=== PATIENT | female | born 1990 | race Caucasian/White ===

== ENCOUNTER 2020-12-21 11:33 | Inpatient (IN) | payer BC ==
[2020-12-21] MEDS ORDERED: Misoprostol 200 MCG Tab PO PRN (11:48)
[2020-12-21] MEDS ORDERED: Sodium Chloride 0.9% 10 ML SDV IV PRN (11:48)
[2020-12-21] MEDS ORDERED: Methylergonovine 0.2 MG/1 ML Amp IM PRN (11:48)
[2020-12-21] MEDS ORDERED: Carboprost Tromethamine 250 MCG/1 ML Amp IM PRN (11:48)
[2020-12-21] MEDS ORDERED: Lidocaine 1% 50 ML MDV INJECT PRN (11:48)
[2020-12-21] MEDS ORDERED: Nalbuphine 10 MG/1 ML Vial IVPUSH PRN (11:48)
[2020-12-21] MEDS ORDERED: Sodium Chloride 0.9% 2.5 ML Syringe FLUSH PRN (11:48)
[2020-12-21] MEDS ORDERED: Tranexamic Acid 1,000 MG in Sodium Chloride 0.9% 100 ML IV PRN (11:48)
[2020-12-21] MEDS ORDERED: Butorphanol 1 MG/ML SDV IVPUSH PRN (11:48)
[2020-12-21] MEDS ORDERED: Water For Irrigation,Sterile 1,000 ML Container IRR PRN (11:48)
[2020-12-21] MEDS ORDERED: Sodium Chloride 0.9% 10 ML Syringe FLUSH PRN (11:48)
[2020-12-21] MEDS ORDERED: Misoprostol 25 MCG (1/4 of 100 MCG) Tab VAG PRN ×2 (11:52)
[2020-12-21] MEDS ORDERED: Terbutaline 1 MG/ML SDV SUBCUT PRN (11:52)
[2020-12-21] MEDS ORDERED: Oxytocin/0.9 % Sodium Chloride 30 UNIT/500 ML BAG IV SCH ×2 (12:00)
[2020-12-21] MEDS ORDERED: Lactated Ringers 1,000 ML IV SCH (12:00)
[2020-12-21] MEDS ORDERED: Oxytocin/0.9 % Sodium Chloride 30 UNIT/500 ML BAG ONE (12:55)
[2020-12-21] MEDS ORDERED: fentaNYL 100 MCG/2 ML SDV ONE ×2 (14:24→14:25)
[2020-12-21] MEDS ORDERED: Ropivacaine HCl/PF 200 ML ONE (14:24)
--- NOTE | 2020-12-21 15:02 | PCM.PREANE ---
Preanesthetic Assessment - Anesthesia/Transfusion/Family Hx Anesthesia History: No Prior Anesthesia Family History of Anesthesia Reaction: No Transfusion History: No Prior Transfusion(s) Intubation History: Unknown - Review of Systems General: No Symptoms Pulmonary: No Symptoms Cardiovascular: No Symptoms Gastrointestinal: No Symptoms Neurological: No Symptoms Other: Reports: None - Physical Assessment NPO Status Date: 12/21/20 NPO Status Time: 13:00 Height: 6 ft 1 in Weight: 89.358 kg ASA Class: 2 Mental Status: Alert & Oriented x3 Dentition: Reports: Normal Dentition ROM/Head Extension: Full Lungs: Clear to Auscultation, Normal Respiratory Effort Cardiovascular: Regular Rate, Regular Rhythm - Lab Values: Laboratory Last Values WBC 7.94 K/uL (4.0-11.0) 12/21/20 11:48 RBC 3.39 M/uL (4.30-5.90) L 12/21/20 11:48 Hgb 10.1 g/dL (12.0-16.0) L 12/21/20 11:48 Hct 31.0 % (36.0-46.0) L 12/21/20 11:48 MCV 91.4 fL (80.0-98.0) 12/21/20 11:48 MCH 29.8 pg (27.0-32.0) 12/21/20 11:48 MCHC 32.6 g/dL (31.0-37.0) 12/21/20 11:48 RDW Std Deviation 44.6 fl (28.0-62.0) 12/21/20 11:48 RDW Coeff of Vani 14 % (11.0-15.0) 12/21/20 11:48 Plt Count 237 K/uL (150-400) 12/21/20 11:48 MPV 12.40 fL (7.40-12.00) H 12/21/20 11:48 Nucleated RBC % 0.0 /100WBC 12/21/20 11:48 Nucleated RBCs # 0 K/uL 12/21/20 11:48 SARS-CoV-2 RNA (ROGER) NEGATIVE (NEGATIVE) 12/21/20 12:00 Blood Type A POSITIVE 12/21/20 11:55 Antibody Screen NEGATIVE 12/21/20 11:55 - Allergies Allergies/Adverse Reactions: Allergies Allergy/AdvReac Type Severity Reaction Status Date / Time pollen extracts Allergy Rash Verified 12/21/20 11:48 - Blood Blood Available: No Product(s) Available: None - Anesthesia Plan Pre-Op Medication Ordered: None - Acknowledgements Anesthesia Type Planned: Epidural Pt an Appropriate Candidate for the Planned Anesthesia: Yes Alternatives and Risks of Anesthesia Discussed w Pt/Guardian: Yes Pt/Guardian Understands and Agrees with Anesthesia Plan: Yes PreAnesthesia Questionnaire HEENT History: Reports: Sinusitis Gastrointestinal History: Reports: GERD Hematologic History: Reports: Anemia - Past Surgical History HEENT Surgical History: Reports: Oral Surgery (wisdom teeth and another tooth that wasn't coming in correctly) Musculoskeletal Surgical History: Reports: Other (See Below) (left foot bunion) - HOME MEDS Home Medications: Home Meds No122/Iron/Folic Acid [ Multi Tablet] 1 each PO 07/19/18 [History] - CURRENT (IN HOUSE) MEDS Current Meds: Current Medications Butorphanol Tartrate (Butorphanol 1 Mg/Ml Sdv) 1 mg IVPUSH Q1H PRN PRN Reason: Pain (severe 7-10) Carboprost Tromethamine (Carboprost Tromethamine 250 Mcg/1 Ml Amp) 250 mcg IM ASDIRECTED PRN PRN Reason: Post Hemorrhage Oxytocin/Sodium Chloride (Oxytocin 30 Unit/500 Ml-Ns) 30 unit in 500 mls @ 500 mls/hr IV TITRATE ELVIN Tranexamic Acid 1,000 mg/ (Sodium Chloride) 110 mls @ 660 mls/hr IV ONETIME PRN PRN Reason: Bleeding Lactated Ringer's (Ringers, Lactated) 1,000 mls @ 150 mls/hr IV ASDIRECTED ELVIN Last Infusion: 12/21/20 14:08 Dose: 999 mls/hr Documented by: Oxytocin/Sodium Chloride (Oxytocin 30 Unit/500 Ml-Ns) 30 unit in 500 mls @ 2 mls/hr IV TITRATE ELVIN; Protocol Last Titration: 12/21/20 14:45 Dose: 8 munits/min, 8 mls/hr Documented by: Lidocaine HCl (Lidocaine 1% 50 Ml Mdv) 50 ml INJECT ONETIME PRN PRN Reason: Laceration repair Methylergonovine Maleate (Methylergonovine 0.2 Mg/1 Ml Amp) 0.2 mg IM ASDIRECTED PRN PRN Reason: Post Hemorrhage Misoprostol (Misoprostol 200 Mcg Tab) 200 mcg PO ONETIME PRN PRN Reason: Post Hemorrhage Misoprostol (Misoprostol 25 Mcg (1/4 Of 100 Mcg) Tab) 25 mcg VAG ONETIME PRN PRN Reason: Cervical Ripening Misoprostol (Misoprostol 25 Mcg (1/4 Of 100 Mcg) Tab) 25 mcg VAG Q4H PRN PRN Reason: Cervical Ripening Nalbuphine HCl (Nalbuphine 10 Mg/1 Ml Vial) 10 mg IVPUSH Q1H PRN PRN Reason: Pain (severe 7-10) Sodium Chloride (Sodium Chloride 0.9% 10 Ml Syringe) 10 ml FLUSH ASDIRECTED PRN PRN Reason: Keep Vein Open Sodium Chloride (Sodium Chloride 0.9% 2.5 Ml Syringe) 2.5 ml FLUSH ASDIRECTED PRN PRN Reason: Keep Vein Open Sodium Chloride (Sodium Chloride 0.9% 10 Ml Sdv) 10 ml IV ASDIRECTED PRN PRN Reason: IV Use Sterile Water (Water For Irrigation,Sterile 1,000 Ml Container) 1,000 ml IRR ASDIRECTED PRN PRN Reason: delivery Terbutaline Sulfate (Terbutaline 1 Mg/Ml Sdv) 0.25 mg SUBCUT ASDIRECTED PRN PRN Reason: Tacysystole Discontinued Medications Fentanyl (Fentanyl 100 Mcg/2 Ml Sdv) Confirm Administered Dose 100 mcg .ROUTE .STK-MED ONE Stop: 12/21/20 14:25 Fentanyl (Fentanyl 100 Mcg/2 Ml Sdv) Confirm Administered Dose 100 mcg .ROUTE .STK-MED ONE Stop: 12/21/20 14:26 Oxytocin/Sodium Chloride (Oxytocin 30 Unit/500 Ml-Ns) Confirm Administered Dose 30 unit in 500 mls @ as directed .ROUTE .STK-MED ONE Stop: 12/21/20 12:56 Ropivacaine (Naropin 0.2%) Confirm Administered Dose 200 mls @ as directed .ROUTE .STK-MED ONE Stop: 12/21/20 14:25
--- NOTE | 2020-12-21 18:53 | PCM.OPNOTE ---
- General Post-Op/Procedure Note Date of Surgery/Procedure: 12/21/20 Operative Procedure(s): /IP Findings: Viable male AGPARs 8, 9 weight 3970 gm. Spontaneous delivery intact placenta with 3V cord Pre Op Diagnosis: 39 week IUP. Elective IOL Post-Op Diagnosis: Same Anesthesia Technique: Epidural Primary Surgeon: Charleen Hurd EBL in mLs: 250 Complications: none known Condition: Stable Free Text/Narrative:: Dictation [id number]
[2020-12-21] MEDS ORDERED: Witch Hazel Medicated Pads 40/Jar TOP PRN (18:54)
[2020-12-21] MEDS ORDERED: Benzocaine/Menthol 20%-0.5% Spray 78 GM Cannister TOP PRN (18:54)
[2020-12-21] MEDS ORDERED: Lanolin 100% Cream 7 GM Tube TOP PRN (18:54)
[2020-12-21] MEDS ORDERED: Bisacodyl 10 MG Supp RECTAL PRN (18:54)
[2020-12-21] MEDS ORDERED: oxyCODONE 5 MG Tab PO PRN (18:54)
[2020-12-21] MEDS ORDERED: Ibuprofen 400 MG Tab PO PRN (18:54)
[2020-12-21] MEDS ORDERED: Acetaminophen 500 MG Tab PO PRN ×2 (18:54)
--- NOTE | 2020-12-21 20:49 | OR ---
SURGEON: Charleen Hurd M.D. DATE OF PROCEDURE: 12/21/2020 PREOPERATIVE DIAGNOSES: 1. A 39-week intrauterine . 2. Elective induction of labor. POSTOPERATIVE DIAGNOSES: 1. A 39-week intrauterine . 2. Elective induction of labor. PROCEDURE: Spontaneous vaginal delivery, intact perineum. PRIMARY SURGEON: Charleen Hurd M.D. ANESTHESIA: Epidural. ESTIMATED BLOOD LOSS: 200 mL. COMPLICATIONS: None known. FINDINGS: Viable male. scores of 8 at one minute, 9 at five minutes. Weight of 3970 g. Spontaneous delivery, intact placenta, 3-vessel cord. DISPOSITION: Infant to nursery, mom in LDRP. PROCEDURE DETAILS: Teri is a 30-year-old G4, P2-0-1-2 at 39 weeks gestational age, presents today for scheduled elective induction of labor. Upon admission, the patient was found to be 2 cm, 60% effaced, and -2 station with category 1 heart tones. She is group B beta strep negative. The patient was admitted. Routine labs drawn. IV hydration was initiated. She was initiated on Pitocin induction and responded nicely to this. Amniotomy was performed. A large amount of clear fluid was returned. The patient continued to progress through the early afternoon hours, became increasingly uncomfortable, underwent regional anesthesia in the form of epidural, became more comfortable, and continued to progress nicely thereafter. The patient was found to be complete. She was placed in modified dorsal lithotomy position, prepped and draped in the usual aseptic manner. With the next 2 contractions, she was able to gently push and deliver 's head atraumatically spontaneously, followed by anterior shoulder and posterior shoulder, and remainder of the body without difficulty. Nuchal cord x1 was reduced manually. The 's oropharynx and nares were bulb suctioned. Infant was handed off to his mother, attending nursery staff at the side. After a delay, cord was clamped x2 and cut. Cord arterial, cord venous, and cord blood samples were obtained. Light pressure was applied while the placenta was delivered spontaneously intact. Vigorous fundal uterine massage was then applied with 30 units of Pitocin delivered in 500 mL of IV fluid. Upon inspection of cervix, vaginal sidewall, and perineum, these were found intact. Uterus remained firm. Hemostasis evident. Sponge and instrument counts were correct. The patient remained in LDRP, to nursery. CHETAN / SOULEYMANE /[id number]
[2020-12-21] MEDS: Docusate Sodium 100 MG Cap PO PRN (22:28)
[2020-12-21] MEDS: Ibuprofen 800 MG Tab PO PRN (22:28)
--- NOTE | 2020-12-22 07:18 | PCM.POSTAN ---
POST ANESTHESIA ASSESSMENT - MENTAL STATUS Mental Status: Alert - VITAL SIGNS Vital Signs: Last Vital Signs Temp 36.4 C 12/22/20 06:00 Pulse 71 12/22/20 06:00 Resp 16 12/22/20 06:00 BP 103/60 12/22/20 06:00 Pulse Ox 96 12/22/20 06:00 - RESPIRATORY Respiratory Status: Respiratory Rate WNL - CARDIOVASCULAR CV Status: Pulse Rate WNL - GASTROINTESTINAL GI Status: No Symptoms - POST OP HYDRATION Hydration Status: Adequate & Stable
--- NOTE | 2020-12-22 07:19 | PCM48HPAN ---
Post Anesthesia Note - EVALUATION WITHIN 48HRS OF ANESTHETIC Vital Signs in Normal Range: Yes Patient Participated in Evaluation: Yes Respiratory Function Stable: Yes Airway Patent: Yes Cardiovascular Function Stable: Yes Hydration Status Stable: Yes Pain Control Satisfactory: Yes Nausea and Vomiting Control Satisfactory: Yes Mental Status Recovered: Yes Vital Signs: Last Vital Signs Temp 36.4 C 12/22/20 06:00 Pulse 71 12/22/20 06:00 Resp 16 12/22/20 06:00 BP 103/60 12/22/20 06:00 Pulse Ox 96 12/22/20 06:00
[2020-12-22] MEDS: Ibuprofen 800 MG Tab PO PRN ×2 (07:54→22:04)
[2020-12-22] MEDS: Docusate Sodium 100 MG Cap PO PRN (07:55)
--- NOTE | 2020-12-22 10:00 | PCM.PNPP ---
- General Info Date of Service: 12/22/20 Functional Status: Reports: Pain Controlled, Tolerating Diet, Ambulating, Urinating - Review of Systems General: Reports: Fatigue. Denies: Fever, Weakness Pulmonary: Denies: Shortness of Breath Cardiovascular: Reports: Edema. Denies: Chest Pain, Palpitations, Lightheadedness Gastrointestinal: Denies: Abdominal Pain, Nausea, Vomiting Genitourinary: Denies: Flank Pain Musculoskeletal: Reports: No Symptoms Skin: Reports: No Symptoms Neurological: Reports: No Symptoms Psychiatric: Reports: No Symptoms - General Info Date of Service: 12/22/20 - Patient Data Vital Signs - Most Recent: Last Vital Signs Temp 36.8 C 12/22/20 08:20 Pulse 80 12/22/20 08:20 Resp 18 12/22/20 08:20 BP 114/76 12/22/20 08:20 Pulse Ox 97 12/22/20 08:20 Weight - Most Recent: 88.451 kg Lab Results - Last 24 Hours: Laboratory Results - last 24 hr 12/21/20 12/21/20 12/21/20 Range/Units 11:48 11:55 12:00 WBC 7.94 (4.0-11.0) K/uL RBC 3.39 L (4.30-5.90) M/uL Hgb 10.1 L (12.0-16.0) g/dL Hct 31.0 L (36.0-46.0) % MCV 91.4 (80.0-98.0) fL MCH 29.8 (27.0-32.0) pg MCHC 32.6 (31.0-37.0) g/dL RDW Std Deviation 44.6 (28.0-62.0) fl RDW Coeff of Vani 14 (11.0-15.0) % Plt Count 237 (150-400) K/uL MPV 12.40 H (7.40-12.00) fL Nucleated RBC % 0.0 /100WBC Nucleated RBCs # 0 K/uL Cord ABG pH (7.18-7.38) Cord ABG Base Excess (-10--2) Cord VBG pH (7.25-7.45) Cord VBG Base Excess (-10--2) SARS-CoV-2 RNA (ROGER) NEGATIVE (NEGATIVE) Blood Type A POSITIVE Antibody Screen NEGATIVE 12/21/20 12/22/20 Range/Units 18:58 05:42 WBC (4.0-11.0) K/uL RBC (4.30-5.90) M/uL Hgb 9.5 L (12.0-16.0) g/dL Hct 29.0 L (36.0-46.0) % MCV (80.0-98.0) fL MCH (27.0-32.0) pg MCHC (31.0-37.0) g/dL RDW Std Deviation (28.0-62.0) fl RDW Coeff of Vani (11.0-15.0) % Plt Count (150-400) K/uL MPV (7.40-12.00) fL Nucleated RBC % /100WBC Nucleated RBCs # K/uL Cord ABG pH 7.206 (7.18-7.38) Cord ABG Base Excess -5 (-10--2) Cord VBG pH 7.374 (7.25-7.45) Cord VBG Base Excess -2 (-10--2) SARS-CoV-2 RNA (ROGER) (NEGATIVE) Blood Type Antibody Screen Med Orders - Current: Current Medications Acetaminophen (Acetaminophen 500 Mg Tab) 500 mg PO Q4H PRN PRN Reason: Pain (mild 1-3) Acetaminophen (Acetaminophen 500 Mg Tab) 1,000 mg PO Q4H PRN PRN Reason: Pain (mild 1-3) Benzocaine/Menthol (Benzocaine/Menthol 20%-0.5% [place] 78 Gm Cannister) 0 gm TOP ASDIRECTED PRN PRN Reason: Perineal Comfort Measure Last Admin: 12/21/20 22:29 Dose: 1 spray Documented by: Bisacodyl (Bisacodyl 10 Mg Supp) 10 mg RECTAL ONETIME PRN PRN Reason: Constipation Carboprost Tromethamine (Carboprost Tromethamine 250 Mcg/1 Ml Amp) 250 mcg IM ASDIRECTED PRN PRN Reason: Post Hemorrhage Docusate Sodium (Docusate Sodium 100 Mg Cap) 100 mg PO Q12H PRN PRN Reason: Constipation Last Admin: 12/22/20 07:55 Dose: 100 mg Documented by: Emollient Ointment (Lanolin 100% Cream 7 Gm Tube) 0 gm TOP ASDIRECTED PRN PRN Reason: Sore Nipples Oxytocin/Sodium Chloride (Oxytocin 30 Unit/500 Ml-Ns) 30 unit in 500 mls @ 500 mls/hr IV TITRATE ELVIN Tranexamic Acid 1,000 mg/ (Sodium Chloride) 110 mls @ 660 mls/hr IV ONETIME PRN PRN Reason: Bleeding Lactated Ringer's (Ringers, Lactated) 1,000 mls @ 150 mls/hr IV ASDIRECTED ELVIN Last Infusion: 12/21/20 14:08 Dose: 999 mls/hr Documented by: Oxytocin/Sodium Chloride (Oxytocin 30 Unit/500 Ml-Ns) 30 unit in 500 mls @ 2 mls/hr IV TITRATE ELVIN; Protocol Last Titration: 12/21/20 17:10 Dose: 18 munits/min, 18 mls/hr Documented by: Ibuprofen (Ibuprofen 400 Mg Tab) 400 mg PO Q4H PRN PRN Reason: Pain (mild 1-3) Ibuprofen (Ibuprofen 800 Mg Tab) 800 mg PO Q6H PRN PRN Reason: Pain (mild 1-3) Last Admin: 12/22/20 07:54 Dose: 800 mg Documented by: Nalbuphine HCl (Nalbuphine 10 Mg/1 Ml Vial) 10 mg IVPUSH Q1H PRN PRN Reason: Pain (severe 7-10) Oxycodone HCl (Oxycodone 5 Mg Tab) 5 mg PO Q2H PRN PRN Reason: Pain (severe 7-10) Sodium Chloride (Sodium Chloride 0.9% 10 Ml Syringe) 10 ml FLUSH ASDIRECTED PRN PRN Reason: Keep Vein Open Sodium Chloride (Sodium Chloride 0.9% 2.5 Ml Syringe) 2.5 ml FLUSH ASDIRECTED PRN PRN Reason: Keep Vein Open Sodium Chloride (Sodium Chloride 0.9% 10 Ml Sdv) 10 ml IV ASDIRECTED PRN PRN Reason: IV Use Sterile Water (Water For Irrigation,Sterile 1,000 Ml Container) 1,000 ml IRR ASDIRECTED PRN PRN Reason: delivery Terbutaline Sulfate (Terbutaline 1 Mg/Ml Sdv) 0.25 mg SUBCUT ASDIRECTED PRN PRN Reason: Tacysystole Witch Trisha (Witch Trisha Medicated Pads 40/Jar) 1 pad TOP ASDIRECTED PRN PRN Reason: comfort care Last Admin: 12/21/20 22:30 Dose: 1 pad Documented by: Discontinued Medications Butorphanol Tartrate (Butorphanol 1 Mg/Ml Sdv) 1 mg IVPUSH Q1H PRN PRN Reason: Pain (severe 7-10) Fentanyl (Fentanyl 100 Mcg/2 Ml Sdv) Confirm Administered Dose 100 mcg .ROUTE .STK-MED ONE Stop: 12/21/20 14:25 Last Admin: 12/22/20 07:30 Dose: Not Given Documented by: Fentanyl (Fentanyl 100 Mcg/2 Ml Sdv) Confirm Administered Dose 100 mcg .ROUTE .STK-MED ONE Stop: 12/21/20 14:26 Last Admin: 12/22/20 07:30 Dose: Not Given Documented by: Oxytocin/Sodium Chloride (Oxytocin 30 Unit/500 Ml-Ns) Confirm Administered Dose 30 unit in 500 mls @ as directed .ROUTE .STK-MED ONE Stop: 12/21/20 12:56 Last Admin: 12/22/20 07:30 Dose: Not Given Documented by: Ropivacaine (Naropin 0.2%) Confirm Administered Dose 200 mls @ as directed .ROUTE .STK-MED ONE Stop: 12/21/20 14:25 Last Admin: 12/22/20 07:30 Dose: Not Given Documented by: Lidocaine HCl (Lidocaine 1% 50 Ml Mdv) 50 ml INJECT ONETIME PRN PRN Reason: Laceration repair Methylergonovine Maleate (Methylergonovine 0.2 Mg/1 Ml Amp) 0.2 mg IM ASDIRECTED PRN PRN Reason: Post Hemorrhage Misoprostol (Misoprostol 200 Mcg Tab) 200 mcg PO ONETIME PRN PRN Reason: Post Hemorrhage Misoprostol (Misoprostol 25 Mcg (1/4 Of 100 Mcg) Tab) 25 mcg VAG ONETIME PRN PRN Reason: Cervical Ripening Misoprostol (Misoprostol 25 Mcg (1/4 Of 100 Mcg) Tab) 25 mcg VAG Q4H PRN PRN Reason: Cervical Ripening - Infant Interaction Support Person: - Recovery Exam Fundal Tone: Firm Fundal Level: 1 Fingerbreadths Below Umbilicus Fundal Placement: Midline Lochia Amount: Scant Lochia Color: Rubra/Red Perineum Description: Intact, Minimal Bruising/Swelling Episiotomy/Laceration: None Bladder Status: Voiding Urinary Elimination: Voided - Exam General: Alert, Oriented Lungs: Normal Respiratory Effort Cardiovascular: Regular Rate, Regular Rhythm GI/Abdominal Exam: Normal Bowel Sounds, Soft Extremities: Pedal Edema (trace). No: Patrica's Sign Skin: Warm, Dry, Intact Neurological: No New Focal Deficit Psy/Mental Status: Alert, Normal Affect, Normal Mood - Problem List & Annotations (1) Vaginal delivery SNOMED Code(s): 063847823 Code(s): O80 - ENCOUNTER FOR FULL-TERM UNCOMPLICATED DELIVERY Status: Acute Current Visit: No - Problem List Review Problem List Initiated/Reviewed/Updated: Yes - My Orders Last 24 Hours: My Active Orders 12/21/20 11:20 Patient Status [ADT] Routine 12/21/20 11:48 Vital Signs [RC] PER UNIT ROUTINE Carboprost Tromethamine [Hemabate DS] 250 mcg IM ASDIRECTED PRN Nalbuphine [Nubain] 10 mg IVPUSH Q1H PRN Sodium Chloride 0.9% [Normal Saline] 10 ml IV ASDIRECTED PRN Sodium Chloride 0.9% [Saline Flush] 10 ml FLUSH ASDIRECTED PRN Sodium Chloride 0.9% [Saline Flush] 2.5 ml FLUSH ASDIRECTED PRN Tranexamic Acid [Cyklokapron] 1,000 mg Sodium Chloride 0.9% [Normal Saline] 100 ml IV ONETIME Water For Irrigation,Sterile [Sterile Water for Irrigation] 1,000 ml IRR ASDIRECTED PRN Peripheral IV Insertion Adult [OM.PC] Routine Resuscitation Status Routine 12/21/20 11:52 Terbutaline [Brethine] 0.25 mg SUBCUT ASDIRECTED PRN 12/21/20 11:55 RPR (SYPHILIS SERO) W/ RFLX [REF] Routine 12/21/20 12:00 Lactated Ringers [Ringers, Lactated] 1,000 ml IV ASDIRECTED Oxytocin/0.9 % Sodium Chloride [Oxytocin 30 Unit/500 ML-NS] 30 unit in 500 ml IV TITRATE Oxytocin/0.9 % Sodium Chloride [Oxytocin 30 Unit/500 ML-NS] 30 unit in 500 ml IV TITRATE Medication Administration Instruction [OM.PC] Q3H 12/21/20 Dinner Regular Diet [DIET] 12/21/20 18:54 Notify Provider Vital Signs [RC] ASDIRECTED Acetaminophen [Tylenol Extra Strength] 1,000 mg PO Q4H PRN Acetaminophen [Tylenol Extra Strength] 500 mg PO Q4H PRN Benzocaine/Menthol [Dermoplast Pain Relief 20%-0.5% [place]] 0 gm TOP ASDIRECTED PRN Docusate Sodium [Colace] 100 mg PO Q12H PRN Ibuprofen [Motrin] 400 mg PO Q4H PRN Ibuprofen [Motrin] 800 mg PO Q6H PRN Lanolin [Lansinoh HPA] See Dose Instructions TOP ASDIRECTED PRN bisacodyL [Dulcolax] 10 mg RECTAL ONETIME PRN oxyCODONE 5 mg PO Q2H PRN witch Trisha [Tucks] 1 pad TOP ASDIRECTED PRN 12/21/20 18:55 Patient Status [ADT] Routine May Shower [RC] ASDIRECTED Up ad Tsering [RC] ASDIRECTED Vital Signs [RC] PER UNIT ROUTINE Assess Lochia [WOMSER] Per Unit Routine Assess Uterine Involution [WOMSER] Per Unit Routine Peripheral IV Discontinue [OM.PC] Routine 12/21/20 18:57 Cooling Warming Measures [RC] ASDIRECTED Ice Therapy [OM.PC] Per Unit Routine Perineal Care [OM.PC] Per Unit Routine Sitz Bath [OM.PC] Per Unit Routine 12/22/20 09:58 Ready for Discharge [RC] PER UNIT ROUTINE - Assessment Assessment:: PPD 1 status post - Plan Plan:: Doing well overall, VS are stable. Discussed anemia and advised iron tablet daily along with vitamin. Patient would like to go home later. Discharge instructions reviewed. Follow up at [facility] 4 weeks.
[2020-12-22 19:59] VITALS: BP 112/73; PULSE 76
== END 2020-12-22 23:00 | disposition home or self-care (01) | DRG 560 ==
LOC: MW.OB 11:33 → OBSVTOIN 18:26 → MW.OB 21:15
PROVIDERS: ADMIT Obstetrics & Gynecology; ATTEND Obstetrics & Gynecology
PROC: 10E0XZZ Delivery of Products of Conception, External Approach (ICD-10-PCS; principal; 2020-12-21)
PROC: 3E033VJ Introduction of Other Hormone into Peripheral Vein, Percutaneous Approach (ICD-10-PCS; 2020-12-21)
PROC: 10907ZC Drainage of Amniotic Fluid, Therapeutic from Products of Conception, Via Natural or Artificial Opening (ICD-10-PCS; 2020-12-21)
PROC: 3E0P7VZ Introduction of Hormone into Female Reproductive, Via Natural or Artificial Opening (ICD-10-PCS; 2020-12-21)
PROC: 3E0R3BZ Introduction of Anesthetic Agent into Spinal Canal, Percutaneous Approach (ICD-10-PCS; 2020-12-21)
PROC: 00HU33Z Insertion of Infusion Device into Spinal Canal, Percutaneous Approach (ICD-10-PCS; 2020-12-21)
DX: O69.81X0 Labor and delivery complicated by cord around neck, without compression, not applicable or unspecified (principal); Z3A.39 39 weeks gestation of pregnancy; Z37.0 Single live birth; Z91.09 Other allergy status, other than to drugs and biological substances; Z20.822 Contact with and (suspected) exposure to COVID-19
CPT/HCPCS: 01967; 36415; 51702; 59025; 59409; 82803; 85014; 85018; 85027; 86592; 86850; 86900; 86901; A9270-GY; J2590; J3010; J7120; U0002

== ENCOUNTER 2021-12-31 05:05 | Inpatient (IN) | payer BC ==
[2021-12-31] MEDS ORDERED: Tranexamic Acid 1,000 MG in Sodium Chloride 0.9% 100 ML IV PRN (05:12)
[2021-12-31] MEDS ORDERED: Sodium Chloride 0.9% 2.5 ML Syringe FLUSH PRN (05:12)
[2021-12-31] MEDS ORDERED: Carboprost Tromethamine 250 MCG/1 ML Amp IM PRN (05:12)
[2021-12-31] MEDS ORDERED: Misoprostol 200 MCG Tab PO PRN (05:12)
[2021-12-31] MEDS ORDERED: Sodium Chloride 0.9% 10 ML Syringe FLUSH PRN (05:12)
[2021-12-31] MEDS ORDERED: Water For Irrigation,Sterile 1,000 ML Container IRR PRN (05:12)
[2021-12-31] MEDS ORDERED: Methylergonovine 0.2 MG/1 ML Amp IM PRN (05:12)
[2021-12-31] MEDS ORDERED: Ondansetron 4 MG/2 ML SDV IVPUSH PRN (05:12)
[2021-12-31] MEDS ORDERED: Butorphanol 1 MG/ML SDV IVPUSH PRN (05:12)
[2021-12-31] MEDS ORDERED: Lidocaine 1% 50 ML MDV INJECT PRN (05:12)
[2021-12-31] MEDS ORDERED: Terbutaline 1 MG/ML SDV SUBCUT PRN (05:12)
[2021-12-31] MEDS ORDERED: Sodium Chloride 0.9% 20 ML SDV IV PRN (05:12)
[2021-12-31] MEDS ORDERED: Oxytocin/0.9 % Sodium Chloride 30 UNIT/500 ML BAG IV SCH ×2 (05:15)
[2021-12-31] MEDS ORDERED: Lactated Ringers 1,000 ML IV SCH (05:15)
[2021-12-31] MEDS ORDERED: ePHEDrine 50 MG/ML SDV IVPUSH PRN ×2 (07:25)
[2021-12-31] MEDS ORDERED: Ropivacaine in NACL,ISO-OSM/PF 800 MG in Premix Bag 1 BAG EPIDUR SCH ×2 (07:30)
[2021-12-31] MEDS ORDERED: Lanolin 100% Cream 7 GM Tube TOP PRN (12:54)
[2021-12-31] MEDS ORDERED: Benzocaine/Menthol 20%-0.5% Spray 78 GM Cannister TOP PRN (12:54)
[2021-12-31] MEDS ORDERED: Ibuprofen 400 MG Tab PO PRN (12:54)
[2021-12-31] MEDS ORDERED: Witch Hazel Medicated Pads 40/Jar TOP PRN (12:54)
[2021-12-31] MEDS ORDERED: Bisacodyl 10 MG Supp RECTAL PRN (12:54)
[2021-12-31] MEDS ORDERED: Acetaminophen 500 MG Tab PO PRN (12:54)
[2021-12-31] MEDS ORDERED: oxyCODONE 5 MG Tab PO PRN (12:54)
[2021-12-31] MEDS ORDERED: Docusate Sodium 100 MG Cap PO PRN (12:54)
[2021-12-31] MEDS: Ibuprofen 800 MG Tab PO PRN (17:17)
[2021-12-31] MEDS: Acetaminophen 500 MG Tab PO PRN (20:33)
[2022-01-01] MEDS: Ibuprofen 800 MG Tab PO PRN ×2 (00:03→09:34)
[2022-01-01] MEDS: Acetaminophen 500 MG Tab PO PRN (04:46)
[2022-01-01 07:33] VITALS: PULSE 64
[2022-01-01 15:14] VITALS: BP 121/77
== END 2022-01-01 14:55 | disposition home or self-care (01) | DRG 560 ==
LOC: MW.OBCHECK 05:05 → MW.OB 05:12 → OBSVTOIN 12:36 → MW.OB 16:14
PROVIDERS: ADMIT Obstetrics & Gynecology; ATTEND Obstetrics & Gynecology
PROC: 10E0XZZ Delivery of Products of Conception, External Approach (ICD-10-PCS; principal; 2021-12-31)
PROC: 10907ZC Drainage of Amniotic Fluid, Therapeutic from Products of Conception, Via Natural or Artificial Opening (ICD-10-PCS; 2021-12-31)
PROC: 3E0R3BZ Introduction of Anesthetic Agent into Spinal Canal, Percutaneous Approach (ICD-10-PCS; 2021-12-31)
PROC: 00HU33Z Insertion of Infusion Device into Spinal Canal, Percutaneous Approach (ICD-10-PCS; 2021-12-31)
DX: O48.0 Post-term pregnancy (principal); Z3A.40 40 weeks gestation of pregnancy; Z37.0 Single live birth; Z20.822 Contact with and (suspected) exposure to COVID-19
CPT/HCPCS: 36415; 59025; 59409; 82803; 85014; 85018; 85027; 86592; 86850; 86900; 86901; A9270-GY; J2590; J7120; U0002